=== PATIENT | female | born 1965 | race Two or more races ===

== ENCOUNTER 2020-04-04 13:46 | Emergency (ER) | payer OTHER ==
[2020-04-04 14:08] VITALS: BMI 36.3
[2020-04-04] MEDS ORDERED: ACETAMINOPHEN 1000 MG/100 ML VIAL (NON FORMULARY) IVPB ONE (14:36)
[2020-04-04] MEDS ORDERED: ACETAMINOPHEN INJECTION 100 ML IVPB ONE (14:56)
[2020-04-04 15:05] LABS: BASO % 0.2 % (0-2.0); EOS % 0.1 % (0-4.5); HEMATOCRIT 44.8 % (32.4-45.2); LYMPH % 13.3 % (8-40); MCH 28.9 pg (25.7-33.7); MCHC 33.5 g/dl (32.0-36.0); MEAN CELL VOLUME 86.2 fl (80-96); MEAN PLT VOLUME 8.9 fl (7.5-11.1); MONO % 2.5 % (3.8-10.2); NEUT % 83.9 % (42.8-82.8); PLATELET COUNT 225 K/MM3 (134-434); RDW 14.3 % (11.6-15.6); WHITE BLOOD COUNT 9.5 K/mm3 (4.0-10.0)
[2020-04-04 15:12] LABS: INR 0.97 (0.83-1.09); PROTHROMBIN TIME (PATIENT) 11.9 SEC (9.7-13.0)
[2020-04-04 15:15] LABS: ACTIVATED PTT 28.1 SECONDS (25.2-36.5)
[2020-04-04 15:23] LABS: CHLORIDE 105 mmol/L (98-107); POTASSIUM 4.2 mmol/L (3.5-5.1); SODIUM 139 mmol/L (136-145)
[2020-04-04 15:26] LABS: ANION GAP 4 MMOL/L (8-16); CALCIUM 8.9 mg/dL (8.5-10.1); CO2 30 mmol/L (21-32); GLUCOSE,RANDOM 116 mg/dL (74-106); LIPASE 44 U/L (73-393)
[2020-04-04 15:29] LABS: SGOT/AST 15 U/L (15-37); SGPT/ALT 20 U/L (13-61)
[2020-04-04 15:31] LABS: BILIRUBIN,TOTAL 0.3 mg/dL (0.2-1); TOT PROT 8.2 g/dl (6.4-8.2)
[2020-04-04 15:32] LABS: ALK PHOS 147 U/L (45-117)
[2020-04-04 15:40] LABS: BLOOD UREA NITROGEN 12.1 mg/dL (7-18); CREATININE 0.7 mg/dL (0.55-1.3)
[2020-04-04 16:05] LABS: PH,URINE 7.5 (5.0-8.0); URINE APPEARANCE CLEAR; URINE BILIRUBIN NEGATIVE (NEGATIVE); URINE COLOR YELLOW; URINE GLUCOSE (UA) NEGATIVE (NEGATIVE); URINE KETONE NEGATIVE (NEGATIVE); URINE LEUK ESTERASE NEGATIVE (NEGATIVE); URINE NITRITE NEGATIVE (NEGATIVE); URINE PROTEIN TRACE (NEGATIVE); URINE UROBILINOGEN 0.2 mg/dL (0.2-1.0)
[2020-04-04] MEDS ORDERED: ONDANSETRON 4 MG/2 ML VIAL IVPB ONE (16:36)
[2020-04-04] MEDS ORDERED: morphine CARPU-JECT 4 MG/1 ML DISP.SYRIN IVPUSH ONE (16:36)
[2020-04-04] MEDS ORDERED: morphine SULFATE 4 MG/ML VIAL ONE (16:37)
[2020-04-04] MEDS ORDERED: ONDANSETRON 4 MG/2 ML VIAL ONE (16:38)
[2020-04-04 19:13] VITALS: BP 122/74; PULSE 64; TEMP 98
== END 2020-04-04 19:13 | disposition home or self-care (01) ==
LOC: JER 13:46
PROC: 3E0333Z Introduction of Anti-inflammatory into Peripheral Vein, Percutaneous Approach (ICD-10-PCS; principal; 2020-04-04)
PROC: 3E033NZ Introduction of Analgesics, Hypnotics, Sedatives into Peripheral Vein, Percutaneous Approach (ICD-10-PCS; 2020-04-04)
PROC: 3E033GC Introduction of Other Therapeutic Substance into Peripheral Vein, Percutaneous Approach (ICD-10-PCS; 2020-04-04)
DX: U07.1 COVID-19 (principal); R10.11 Right upper quadrant pain
CPT/HCPCS: 36415; 71045-TC-FY; 74176-TC; 80053; 81003; 82550; 83690; 84484; 85025; 85379; 85610; 85730; 87086; 87186; 93005; 93010; 99285-25; C9803; J0131; U0003